=== PATIENT | female | born 1960 | race Caucasian/White ===

== ENCOUNTER → 2017-09-14 | Outpatient (CLI) | payer MEDICARE, OTHER ==
--- NOTE | 2017-09-14 16:07 | P.HPBAR ---
Bariatric H&P - History & Physicial H&P Date: 09/14/17 History & Physicial: Visit/CC: Patient initial contact: Initial weight: Initial weight in pounds: Height: Initial BMI: Last weight: 216 Current weight: 210 Current weight in pounds: Current BMI: [place] body weight (based on NIH guidelines): Excess body weight loss: The patient is a 56 year-old F who presents for Bariatric Assessment. Patient presents today for lab band follow. She is requesting panniculectomy. She has developed well-formed panniculus. She has had trouble with chronic skin irritations. Past Medical History Past Medical History: Hypertension History of Any Multi-Drug Resistant Organisms: None Reported Past Surgical History: Bariatric Surgery Additional Past Surgical History / Comment(s): GASTRIC BAND SURGERY 2011 Past Anesthesia/Blood Transfusion Reactions: No Reported Reaction Past Psychological History: Anxiety Smoking Status: Never smoker Past Alcohol Use History: None Reported Past Drug Use History: None Reported Surgical - Exam - General well developed, no distress - Eyes PERRL - ENT normal pinna, normal mucosa - Abdomen Abdomen: soft, non tender Bariatric Assessment & Plan Plan: History of morbid obesity with excellent weight loss. Patient is a well-formed panniculus. We will attempt to obtain authorization for panniculectomy. The patient will follow-up in 4 weeks. Bariatric Checklist Checklist: Plan: Checklist: EGD: 1. Hiatal hernia: 2. H. Pylori: HgbA1c: Vitamin D: Smoking: Never smoker Primary care physician referral: DR LEIVA Psychiatry clearance: Cardiology clearance: Sleep study: Diet journal: VTE risk score: VTE risk level: Rehab needs at discharge:
[2017-09-14 17:29] VITALS: BP 183/107; PULSE 68; RESP 14; TEMP 98.3; BMI 31.0
== END | disposition home or self-care (01) ==
LOC: BARWHC3 13:40
PROVIDERS: ATTEND Surgery
DX: Z48.815 Encounter for surgical aftercare following surgery on the digestive system (principal); Z98.84 Bariatric surgery status
CPT/HCPCS: 99211

== ENCOUNTER → 2020-04-10 | Outpatient (CLI) | payer MEDICARE, OTHER ==
--- NOTE | 2020-04-10 13:35 | P.BASOAP ---
Subjective Progress Note Date: 04/10/20 Principal diagnosis: Morbid obesity Patient returns for reevaluation. She was last seen by myself 2015. At that time patient had 0.5 mL of fluid added to her band. He believe that total and there are now is 4.5 mL. Patient has an AP small band in place. This was placed in 2006. Saw Dr. Guan 2018 for panniculectomy. Apparently that never was performed. She is not sure why. States she is having intermittent vomiting every few days. Dysphagia to meat and other solid foods. Does not want any fluid removed. She is willing to have a esophagram performed to evaluate the band. Current weight 211. Patient was 350 at the time of her band placement. Objective - Exam Abdomen: Soft, nontender, nondistended Assessment/Plan (1) Morbid obesity Narrative/Plan: 59-year-old female with intermittent vomiting post LAP-BAND placement. Recommend esophagram and loosening the patient's band. Patient will not allow us to do an adjustment at this time. We'll contact patient with esophagram findings. Risk of prolapse or erosion reviewed. Patient also interested in proceeding with panniculectomy. Will notify Dr. Guan of that request. Plan: Date: Initial Weight: Initial BMI: Current Weight: Current BMI: Type of Surgery: Total Volume in Band: 0.5 Previous Volume: Volume Removed: Volume Added: Band Size:
[2020-04-10 13:55] VITALS: BP 175/100; PULSE 90; TEMP 98.2; BMI 31.1
== END | disposition home or self-care (01) ==
LOC: BARWHC3 12:59
PROVIDERS: ATTEND Surgery
DX: E66.01 Morbid (severe) obesity due to excess calories (principal); Z68.31 Body mass index [BMI] 31.0-31.9, adult
CPT/HCPCS: 99211

== ENCOUNTER → 2020-04-25 | Outpatient (CLI) | payer MEDICARE, OTHER ==
[2020-04-25 14:43] VITALS: BP 177/105; PULSE 87; RESP 18; TEMP 97.7; BMI 31.0
--- NOTE | 2020-04-25 15:22 | P.HPBAR ---
Bariatric H&P - History & Physicial H&P Date: 04/25/20 History & Physicial: Visit/CC: follow up / seeking panni Patient initial contact: Initial weight: Initial weight in pounds: Height: 5 ft 9 in Initial BMI: Last weight: Current weight: 95.254 kg Current weight in pounds: 210.00 Current BMI: 31.0 [place] body weight (based on NIH guidelines): 65.771 kg Excess body weight loss: The patient is a 59 year-old F who presents for Bariatric Assessment. DATE OF SERVICE: 04/25/2020 CHIEF COMPLAINT: Panniculitis HISTORY OF PRESENT ILLNESS: Kaylyn Zhong is a 59-year-old female who had the lap band since 2011. She is 9 years out. She comes in for panniculectomy. She has severe panniculitis for at least 3 years. Her highest weight is 350 pounds. Her lowest weight is 198 pounds. She comes in 210 pounds. She denies any prior port revisions. She has lower back pain at L4-L5. She has chronic pain syndrome. She denies skin cancer. She has history of ovarian cancer with hysterectomy done robotically. She had open cholecystectomy. She reports troubles with grooming and with wearing underwear with redness along her apron of her abdomen. She has used oral and topical treatments for her panniculitis. She has been treated for systemic infection including using Nystatin powder. She has rashes along the belly button as well. Separately, she has troubles with swallowing including chronic dysphagia and vomiting. She smokes 2 pack daily down to 1 pack daily. She presents to me for the first time in consultation. At her height of 5 foot 9 inches, her initial weight was 350 pounds. Her ideal body weight is 168 pounds. Her body mass index is reduced from 51.8 down to 31.0. Today she comes in weighing 210 pounds. She has lost 140 pounds, lifetime. Lifetime percent excess weight loss is 77 %. PAST MEDICAL HISTORY: 1. Hypertensive heart disorder 2. Anxiety disorder 3. Morbid obesity due to excess calories, BMI 51.8, initial PAST SURGICAL HISTORY: 1. Cholecystectomy. 2. Gastric band placement, 2011 MEDICATIONS: Home Medications Medication Instructions Recorded Confirmed oxyCODONE-APAP 5-325MG [Percocet 1 tab PO TID 01/29/16 04/25/20 5-325 mg] Meloxicam [Mobic] 7.5 mg PO HS 09/14/17 04/25/20 Nystatin 100,000 Unit/gm Powd 1 applic TOPICAL TID 09/14/17 04/25/20 [Mycostatin Powder] Azilsartan Med/Chlorthalidone 1 each PO DAILY 04/25/20 04/25/20 [Edarbyclor 40-25 mg Tablet] diazePAM [Valium] 5 mg PO Q8HR PRN 04/25/20 04/25/20 ALLERGIES: Allergies Allergy/AdvReac Type Severity Reaction Status Date / Time naproxen [From Aleve] Allergy Rash/Hives Verified 04/25/20 14:38 Penicillins Allergy Rash/Hives Verified 04/25/20 14:38 ibuprofen [From Motrin] AdvReac Abdominal Verified 04/25/20 14:38 Pain SOCIAL HISTORY: Past smoking FAMILY HISTORY: History of morbid obesity. REVIEW OF SYSTEMS: CONSTITUTIONAL: At her height of 5 foot 9 inches, her initial weight was 350 pounds. Her ideal body weight is 168 pounds. Her body mass index is reduced from 51.8. GASTROINTESTINAL: Has dysphagia with trouble swallowing. No blood in stools. RESPIRATORY: No sleep apnea. No pneumonia. MUSCULOSKELETAL: She has intermittent joint pain, including lower back pain from pannus. HEENT: Denies any troubles with vision or hearing. ENDOCRINE: Denies blood sugar glucose. No reports of thyroid disorders. CARDIOVASCULAR: Denies any of recent palpitation or heart attack. Hypertensive heart disease. PSYCH: No anxiety. Has depression. HEMATOLOGIC: Denies any personal history of venothrombotic event. SKIN: Has panniculitis. No recent skin cancer. PHYSICAL EXAM: VITAL SIGNS: 5 feet 9 inches, 210 pounds. Body mass index 31.0 ABDOMEN: Soft, nontender. Non-distended. GENERAL: Well-developed, pleasant female in no acute distress. HEENT: No scleral icterus. Extraocular movements grossly intact. Moist buccal mucosa. NECK: Supple. No lymphadenopathy. No JV distention. CHEST: Unlabored respirations, equal bilateral excursions. CARDIOVASCULAR: Regular rate and rhythm. MUSCULOSKELETAL: No clubbing, cyanosis, or edema. NEURO: Moves all extremities. Cranial nerves 2 through 12 grossly intact. PSYCH: Appropriate affect. Alert and oriented to person, place and time. SKIN: Well perfused. Good skin turgor. Pannus is 10 to 15 pounds with skin inflammation with redness and panniculitis. Grade 3 panniculus. ASSESSMENT: 1. Morbid obesity due to excess calories, BMI 51.8, initial 2. Hypertensive heart disorder 3. Anxiety disorder 4. Panniculitis 5. Dysphagia 6. Status post gastric band placement PLAN: 1. Will need correction of all vitamin deficiencies prior to panniculectomy. 2. Strict nicotine avoidance including secondhand exposure perioperative including postoperative described to decrease risk of wound infection and complications. 3. Recommend urine nicotine test prior to surgical intervention 4. She will require cardiology clearance 5. Recommend pain management 6. Recommend follow-up with lockstitch sleeve setter for panniculitis evaluation. 7. Recommend esophagram for further assessment of dysphagia. Laboratory Last Values WBC 7.2 k/uL (3.8-10.6) 04/25/20 15:40 RBC 4.65 m/uL (3.80-5.40) 04/25/20 15:40 Hgb 13.2 gm/dL (11.4-16.0) 04/25/20 15:40 Hct 41.8 % (34.0-46.0) 04/25/20 15:40 MCV 89.9 fL (80.0-100.0) 04/25/20 15:40 MCH 28.4 pg (25.0-35.0) 04/25/20 15:40 MCHC 31.6 g/dL (31.0-37.0) 04/25/20 15:40 RDW 14.3 % (11.5-15.5) 04/25/20 15:40 Plt Count 342 k/uL (150-450) 04/25/20 15:40 MPV 7.1 04/25/20 15:40 PT 10.3 sec (9.9-11.9) 04/25/20 15:40 INR 0.94 (0.90-1.11) 04/25/20 15:40 APTT 26.6 sec (23.5-31.0) 04/25/20 15:40 Sodium 141 mmol/L (135-145) 04/25/20 15:40 Potassium 4.3 mmol/L (3.5-5.5) 04/25/20 15:40 Chloride 107 mmol/L (96-109) 04/25/20 15:40 Carbon Dioxide 26.6 mmol/L (21.6-31.8) 04/25/20 15:40 Anion Gap 7.40 mmol/L (4.00-12.00) 04/25/20 15:40 BUN 10.0 mg/dL (9.0-27.0) 04/25/20 15:40 Creatinine 0.9 mg/dL (0.6-1.5) 04/25/20 15:40 Est GFR (CKD-EPI)AfAm 82.3 (60.0-200.0) 04/25/20 15:40 Est GFR (CKD-EPI)NonAf 71.0 (60.0-200.0) 04/25/20 15:40 BUN/Creatinine Ratio 11.11 Ratio (12.00-20.00) L 04/25/20 15:40 Glucose 85 mg/dL (70-110) 04/25/20 15:[address] Glu mg/dL 120 04/25/20 15:40 Hemoglobin A1c 5.8 % (4.0-6.0) 04/25/20 15:40 Calcium 9.1 mg/dL (8.7-10.3) 04/25/20 15:40 Phosphorus 4.5 mg/dL (2.4-5.1) 04/25/20 15:40 Magnesium 2.4 mg/dL (1.5-2.4) 04/25/20 15:40 Iron 56 ug/dL (50-170) 04/25/20 15:40 TIBC 424 ug/dL (228-460) 04/25/20 15:40 % Saturation 13.21 (12.00-45.00) 04/25/20 15:40 Ferritin 11.4 ng/mL (10.0-291.0) 04/25/20 15:40 Total Bilirubin 0.2 mg/dL (0.3-1.2) L 04/25/20 15:40 AST 19 U/L (13-35) 04/25/20 15:40 ALT 12 U/L (8-44) 04/25/20 15:40 Alkaline Phosphatase 96 U/L (41-126) 04/25/20 15:40 Total Protein 6.7 g/dL (6.2-8.2) 04/25/20 15:40 Albumin 4.50 g/dL (3.80-4.90) 04/25/20 15:40 Globulin 2.2 g/dL (1.6-3.3) 04/25/20 15:40 Albumin/Globulin Ratio 2.05 g/dL (1.60-3.17) 04/25/20 15:40 Prealbumin 19.0 mg/dL (18.0-42.0) 04/25/20 15:40 Triglycerides 204.0 mg/dL (0.0-149.0) H 04/25/20 15:40 Cholesterol 214 mg/dL (0-200) H 04/25/20 15:40 LDL Cholesterol, Calc 133.2 mg/dL (0.0-131.0) H 04/25/20 15:40 VLDL Cholesterol, Calc 40.80 mg/dL (5.00-40.00) H 04/25/20 15:40 HDL Cholesterol 40.0 mg/dL (40.0-60.0) 04/25/20 15:40 Cholesterol/HDL Ratio 5.35 04/25/20 15:40 Vitamin A 44 ug/dL (38-106) 04/25/20 15:40 Vitamin B1 51 ug/L (38-122) 04/25/20 15:40 Vitamin B12 357.0 pg/mL (200.0-944.0) 04/25/20 15:40 Vitamin D 25-Hydroxy 47.4 ng/mL (30.0-100.0) 04/25/20 15:40 Folate 3.4 ng/mL 04/25/20 15:40 TSH 0.900 uIU/mL (0.350-5.500) 04/25/20 15:40 PTH Intact 63.8 pg/mL (14.0-72.0) 04/25/20 15:40 Urine Cotinine 642.8 ng/mL (<5.0) H 04/25/20 15:40 Urine Nicotine 1168.8 ng/mL (<2.0) H 04/25/20 15:40 Urine Anabasine 7.1 ng/mL (<2.0) H 04/25/20 15:40 Copper 1523 ug/L (810-1990) 04/25/20 15:40 Selenium 116 mcg/L (63-160) 04/25/20 15:40 Zinc 70 ug/dL (60-130) 04/25/20 15:40 EKG EKG PERFORMED 04/25/20 15:40 Past Medical History Past Medical History: Hypertension History of Any Multi-Drug Resistant Organisms: None Reported Past Surgical History: Bariatric Surgery Additional Past Surgical History / Comment(s): GASTRIC BAND SURGERY 2011 Past Anesthesia/Blood Transfusion Reactions: No Reported Reaction Past Psychological History: Anxiety Smoking Status: Never smoker Past Alcohol Use History: None Reported Past Drug Use History: None Reported Surgical - Exam Vital Signs Temp Pulse Resp BP 97.7 F 87 18 177/105 04/25/20 14:36 04/25/20 14:36 04/25/20 14:36 04/25/20 14:36 Results - Labs 04/25/20 15:40 04/25/20 15:40 Bariatric Checklist Checklist: Plan: Checklist: EGD: 1. Hiatal hernia: 2. H. Pylori: HgbA1c: Vitamin D: Smoking: Never smoker Primary care physician referral: DR SWEET Psychiatry clearance: Cardiology clearance: Sleep study: Diet journal: VTE risk score: VTE risk level: Rehab needs at discharge:
[2020-04-25 16:36] LABS: HCT 41.8 % (34.0-46.0); HGB 13.2 gm/dL (11.4-16.0); MCH 28.4 pg (25.0-35.0); MCHC 31.6 g/dL (31.0-37.0); MCV 89.9 fL (80.0-100.0); Mean Platelet Volume 7.1; Platelet Count 342 k/uL (150-450); RBC 4.65 m/uL (3.80-5.40); RDW 14.3 % (11.5-15.5); WBC 7.2 k/uL (3.8-10.6)
[2020-04-26 00:42] LABS: INR 0.94 (0.90-1.11); Partial Thromboplastin Time 26.6 sec (23.5-31.0); Prothrombin Time 10.3 sec (9.9-11.9)
[2020-04-26 00:50] LABS: % Iron Saturation 13.21 (12.00-45.00); African American GFR (CKD) 82.3 (60.0-200.0); Albumin 4.5 g/dL (3.80-4.90); Albumin/Globulin Ratio 2.05 (1.60-3.17); Anion Gap 7.4 mmol/L (4.00-12.00); BUN/Creat Ratio 11.11 Ratio (12.00-20.00); Calcium 9.1 mg/dL (8.7-10.3); Carbon Dioxide 26.6 mmol/L (21.6-31.8); Chol/HDL Ratio 5.35; Globulin 2.2 g/dL (1.6-3.3); LDL Cholesterol,Calculated 133.2 mg/dL (0.0-131.0); Magnesium 2.4 mg/dL (1.5-2.4); Phosphorus 4.5 mg/dL (2.4-5.1); Potassium 4.3 mmol/L (3.5-5.5); Total Bilirubin 0.2 mg/dL (0.3-1.2); Total Protein 6.7 g/dL (6.2-8.2); VLDL Calculation 40.8 mg/dL (5.00-40.00)
[2020-04-26 01:00] LABS: Folate, Serum 3.4 ng/mL; Hemoglobin A1C 5.8 % (4.0-6.0)
[2020-04-26 01:06] LABS: Ferritin 11.4 ng/mL (10.0-291.0)
[2020-04-26 10:14] LABS: Zinc, Serum 70 ug/dL (60-130)
[2020-04-27 07:06] LABS: Vitamin A 44 ug/dL (38-106)
[2020-04-27 13:47] LABS: Vit B1(Thiamine) 51 ug/L (38-122)
[2020-04-29 18:04] LABS: Selenium 116 mcg/L (63-160)
[2020-04-30 09:27] LABS: Anabasine Urine 7.1 ng/mL (<2.0)
== END | disposition home or self-care (01) ==
LOC: BARWHC3 14:26
PROVIDERS: ATTEND Surgery Plastic and Reconstructive Surgery
DX: E66.01 Morbid (severe) obesity due to excess calories (principal); I11.9 Hypertensive heart disease without heart failure; F41.9 Anxiety disorder, unspecified; M79.3 Panniculitis, unspecified; R13.10 Dysphagia, unspecified; Z98.84 Bariatric surgery status
CPT/HCPCS: 36415; 80053; 80061; 80323; 82306; 82525; 82607; 82728; 82746; 83036; 83540; 83550; 83735; 83970; 84100; 84134; 84255; 84425; 84443; 84590; 84630; 85027; 85610; 85730; 93005; 99211

== ENCOUNTER → 2020-05-23 | Outpatient (CLI) | payer MEDICARE, OTHER ==
--- NOTE | 2020-05-23 14:27 | FL ---
EXAMINATION TYPE: FL barium swallow DATE OF EXAM: 05/23/2020 COMPARISON: 01/26/2009 HISTORY: Reflux, burning in throat, dysphagia TECHNIQUE: A single contrast UGI study is performed. FINDINGS: Contrast passes from the distal esophagus through the lap band with mild hesitancy. No extr avasation of contrast is evident. There is complete emptying of the esophagus in the upright position . The horizontal drinking position there is a large amount of reflux demonstrated to the level of the clavicles. Patient had incomplete stripping of the esophageal bolus in the horizontal drinking positi on. Tertiary contractions were observed. Secondary contractions are evident. IMPRESSIONS: 1. Gastroesophageal reflux to the clavicles. 2. Presbyesophagus. 3. Lap band with moderate hesitancy passing an antegrade fashion.
== END | disposition home or self-care (01) ==
LOC: RADUSWWP 12:50
PROVIDERS: ATTEND Surgery
DX: K21.9 Gastro-esophageal reflux disease without esophagitis (principal); K22.8 Other specified diseases of esophagus
CPT/HCPCS: 74220

== ENCOUNTER → 2022-11-18 | Outpatient (CLI) | payer MEDICARE, OTHER ==
[2022-11-18 14:50] VITALS: BP 136/88; PULSE 74; RESP 16; TEMP 97.7; BMI 28.9
--- NOTE | 2022-11-18 15:09 | P.BASOAP ---
Subjective Progress Note Date: 11/18/22 Principal diagnosis: Morbid obesity patient here for bariatric evaluation. She was last seen 2 years ago. At that time patient had some mild heartburn issues and some mild dysphagia. She had an esophagram showing mild hesitancy. She did not want any fluid removed from her band at that time. Recently she has had increasing heartburn and some night cough. She has had increased voice hoarseness. She was seen in the ER in [place] recently. She has an appointment to see ENT on 12/19. She started Prevacid without relief. Denies dysphagia. No vomiting. Objective - Vital Signs Vital signs: Vital Signs Temp 97.7 F 11/18/22 14:48 Pulse 74 11/18/22 14:48 Resp 16 11/18/22 14:48 BP 136/88 11/18/22 14:48 Pulse Ox FiO2 Intake & Output 11/17/22 11/18/22 11/18/22 18:59 06:59 18:59 Weight 88.904 kg - Exam Abdomen: Soft, nontender, nondistended Assessment/Plan (1) Morbid obesity Narrative/Plan: Options reviewed. Will empty the patient's band at this time. Follow-up with ENT. Return visit 2 months. If symptoms persist consider EGD or repeat esophagram. The patient's lap band port was palpated. The site was aseptically prepped. The Brasher needle was advanced into the port. A total of 3 ml of fluid was removed. Pressure was held and a sterile dressing was applied. Plan: Date: 11/18/22 Initial Weight: 103.618 kg Initial BMI: 33.7 Current Weight: 88.904 kg Current BMI: 28.9 Type of Surgery: Adjustable Gastric Banding Total Volume in Band: 0.5 Previous Volume: Volume Removed: Volume Added: Band Size:
== END ==
LOC: BARWHC3 14:38
PROVIDERS: ATTEND Surgery
DX: E66.01 Morbid (severe) obesity due to excess calories (principal); Z68.28 Body mass index [BMI] 28.0-28.9, adult; Z98.84 Bariatric surgery status; Z46.51 Encounter for fitting and adjustment of gastric lap band; Z88.0 Allergy status to penicillin; Z88.6 Allergy status to analgesic agent
CPT/HCPCS: 99212